=== PATIENT | female | born 1945 | race Caucasian/White ===

== ENCOUNTER 2018-10-27 18:59 | Emergency (ER) | payer OTHER ==
[~2018-10-27] VITALS: Ht 165.1 cm; Wt 95.3 kg
[~2018-10-27 18:59] MED LIST: HYDR12.5 PO; LISI40TA4 PO; METF500T PO
[2018-10-27 19:18] VITALS: BP 144/86
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
[2018-10-27] MEDS ORDERED: CYCLOBENZAPRINE 10 MG TAB PO ONE (20:10)
[2018-10-27] MEDS ORDERED: IBUPROFEN 400 MG TAB PO ONE (20:10)
--- NOTE | 2018-10-27 20:15 | NUR ---
PT TAKEN TO X-RAY VIA WHEELCHAIR BY TECH AT THIS TIME.
--- NOTE | 2018-10-27 21:00 | NUR ---
Patient discharged with v/s stable. Patient states she feels much better and is ready to go home, patient acting appropriatly. Written and verbal after care instructions given and explained. Patient alert, oriented and verbalized understanding of instructions. Ambulatory with steady gait. All questions addressed prior to discharge. ID band removed. Patient advised to follow up with PMD. Rx of Flexeril, and Ibuprofen given. Patient educated on indication of medication including possible reaction and side effects. Opportunity to ask questions provided and answered.
[2018-10-27 21:03] VITALS: BP 141/61
== END 2018-10-27 21:00 | disposition home or self-care (01) ==
LOC: MED 18:59
DX: S16.1XXA Strain of muscle, fascia and tendon at neck level, initial encounter (principal); E11.9 Type 2 diabetes mellitus without complications; I10 Essential (primary) hypertension; Z88.5 Allergy status to narcotic agent; Z88.2 Allergy status to sulfonamides; Z79.84 Long term (current) use of oral hypoglycemic drugs; Z79.899 Other long term (current) drug therapy; V89.2XXA Person injured in unspecified motor-vehicle accident, traffic, initial encounter; Y93.89 Activity, other specified; Y92.89 Other specified places as the place of occurrence of the external cause; Y99.8 Other external cause status
CPT/HCPCS: 72050; 99283